=== PATIENT | male | born 1970 ===

== ENCOUNTER 2016-11-28 15:34 | Inpatient (IN) | payer MEDICAID, OTHER ==
[2016-11-28 16:48] VITALS: O2SAT 97
[2016-11-28 17:00] LABS: RBC URINE 1 /hpf (0-3); URINE BILIRUBIN NEGATIVE (NEGATIVE); URINE BLOOD NEGATIVE (NEGATIVE); URINE COLOR YELLOW (YELLOW); URINE GLUCOSE (UA) NEG (Normal); URINE KETONE NEGATIVE (NEGATIVE); URINE LEUKOCYTE ESTERASE NEG Leu/uL (Negative); URINE PROTEIN NEGATIVE (NEGATIVE); URINE UROBILINOGEN 0.2-1.0 mg/dL (0.2-1.0); WBC URINE < 1 /hpf (0-5)
[2016-11-28 17:00] LABS: BASO # 0.1 K/uL (0.0-0.2); BASO % 0.9 % (0.0-2.0); EOS # 0.3 K/uL (0.0-0.7); EOS % 3.6 % (0.0-4.0); HEMATOCRIT 46.6 % (35.0-51.0); LYMPH # 2.2 K/uL (1.0-4.3); LYMPH % 26.2 % (20.0-40.0); MEAN CELL VOLUME 94.4 fl (80.0-94.0); MEAN CORPUSCULAR HGB CONC 33.9 g/dL (33.0-37.0); MEAN PLATELET VOLUME 7.4 fl (7.2-11.7); MONO # 0.5 K/uL (0.0-0.8); MONO % 6.2 % (0.0-10.0); NEUT # 5.3 K/uL (1.8-7.0); NEUT % 63.1 % (50.0-75.0); RED CELL DISTRIBUTION WIDTH 12.6 % (11.5-14.5); WHITE BLOOD COUNT 8.3 K/uL (4.8-10.8)
[2016-11-28 17:31] LABS: ALB/GLOB RATIO 1.5 (1.0-2.1); ALCOHOL SERUM < 10 mg/dl (0-10); ALKALINE PHOSPHATASE 66 U/L (38-126); ALT/SGPT 35 U/L (21-72); AST/SGOT 24 U/L (17-59); BILIRUBIN,TOTAL 0.5 mg/dl (0.2-1.3); BLOOD UREA NITROGEN 21 mg/dl (9-20); CALCIUM 9.7 mg/dL (8.4-10.2); CARBON DIOXIDE 25 mmol/L (22-30); CHLORIDE 104 mmol/L (98-107); GFR AFRICAN-AMERICAN > 60; GLUCOSE,RANDOM 117 mg/dL (75-110); POTASSIUM 4.3 MMOL/L (3.6-5.0); SODIUM 141 mmol/l (132-148)
--- NOTE | 2016-11-28 18:15 | ED PDOC ---
HPI: Psych/Substance Abuse Time Seen by Provider: 11/28/16 15:40 Chief Complaint (Nursing): Psychiatric Evaluation Chief Complaint (Provider): Psychiatric Evaluation History Per: Patient History/Exam Limitations: no limitations Current Symptoms Are (Timing): Still Present Additional Complaint(s): Carrillo Arroyo is a 46 y/o male, with a pertinent past medical history of schizoaffective with depressive disorder, presenting to the ER on 11/28/2016 for a psychiatric evaluation after being sent here from the mental health clinic for having thoughts of suicidal ideation and depression. Patient is currently on Klonopin and Prozac for his symptoms, but states he still harbors sad feelings despite treatment. Patient denies any homicidal ideation or medical complaints at this time. Past Medical History Reviewed: Historical Data, Nursing Documentation, Vital Signs Vital Signs: Last Vital Signs Temp 98.6 F 11/28/16 16:47 Pulse 84 11/28/16 16:47 Resp 18 11/28/16 16:47 BP 121/75 11/28/16 16:47 Pulse Ox 97 11/28/16 16:47 - Medical History PMH: Anxiety, Back Problems, Depression - Surgical History Surgical History: Back Surgery Other surgeries: left shoulder; laproscopy - Family History Family History: States: Unknown Family Hx - Social History Current smoker - smoking cessation education provided: No Alcohol: None Drugs: Denies - Immunization History Hx Tetanus Toxoid Vaccination: No Hx Influenza Vaccination: No Hx Pneumococcal Vaccination: No - Home Medications Home Medications: Ambulatory Orders Medication Instructions Recorded Budesonide [Rhinocort Allergy] 2 spray ANN-MARIE DAILY PRN 11/28/16 Clonazepam Liquid 2.5 mg PO TID PRN 11/28/16 Hydrocodone/Acetaminophen 1 tab PO Q4H PRN 11/28/16 [Hydrocodon-Acetaminophn 10-325] Ibuprofen/Diphenhydramine HCl 2 cap PO HS PRN 11/28/16 [Advil Pm Liqui-Gels] - Allergies Allergies/Adverse Reactions: Allergies Allergy/AdvReac Type Severity Reaction Status Date / Time No Known Allergies Allergy Verified 11/28/16 16:10 Review of Systems ROS Statement: Except As Marked, All Systems Reviewed And Found Negative Constitutional: Negative for: Fever Neurological: Negative for: Weakness, Numbness, Altered Mental Status Psych: Positive for: Depression, Suicidal ideation Physical Exam - Reviewed Nursing Documentation Reviewed: Yes Vital Signs Reviewed: Yes - Physical Exam Appears: Positive for: Non-toxic, No Acute Distress (patient appears to be tearful) Head Exam: Positive for: ATRAUMATIC, NORMOCEPHALIC Skin: Positive for: Normal Color. Negative for: Rash Eye Exam: Positive for: Normal appearance ENT: Positive for: Normal ENT Inspection Neck: Positive for: Normal, Painless ROM, Supple Cardiovascular/Chest: Positive for: Regular Rate, Rhythm. Negative for: Murmur Respiratory: Positive for: Normal Breath Sounds. Negative for: Respiratory Distress Gastrointestinal/Abdominal: Positive for: Normal Exam, Soft. Negative for: Tenderness Extremity: Positive for: Normal ROM. Negative for: Deformity, Swelling Neurologic/Psych: Positive for: Alert, Oriented. Negative for: Motor/Sensory Deficits - Laboratory Results Result Diagrams: 11/28/16 17:00 11/28/16 16:32 - ECG ECG Rhythm: Positive for: Sinus Rhythm (@ 70 bpm) O2 Sat by Pulse Oximetry: 97 Medical Decision Making Medical Decision Makin:07 Initial Impression- 46 y/o male with depression and suicidal ideation Initial Plan- * EKG * Crisis Eval * 1:1 OBS 18:18 Patient was evaluated by crisis. Utox is positive for opiates. Patient is medically stable for admission under Dr. Roque. Documented by Liz Monet, acting as a scribe for Megan Degroot MD. All medical record entries made by the Scribe were at my direction and personally dictated by me. I have reviewed the chart and agree that the record accurately reflects my personal performance of the history, physical exam, medical decision making, and the department course for this patient. I have also personally directed, reviewed, and agree with the discharge instructions and disposition. Disposition - Clinical Impression Clinical Impression: Depression - Patient ED Disposition Is Patient to be Admitted: Yes - Disposition Disposition Time: 17:00 Condition: STABLE
[2016-11-28] MEDS ORDERED: Alum-Mag Hydrox-Simethicone Susp (30 mL) PO PRN (21:48)
[2016-11-28] MEDS ORDERED: DiphenhydrAMINE 50 mg/ml Inj IM PRN (21:48)
[2016-11-28] MEDS ORDERED: Magnesium Hydroxide Susp 30 ml UD PO PRN (21:48)
[2016-11-29 08:16] LABS: T4 7.57 ug/dl (5.5-11.0)
[2016-11-29 08:30] LABS: THYROID STIMULATING HORMONE 3.42 mIU/ML (0.46-4.68)
--- NOTE | 2016-11-29 10:16 | CARD ---
APPROVED REPORT EKG Measurement Heart [id number] <Conclusion> Normal sinus rhythm Possible Inferior infarct, age undetermined Abnormal ECG
--- NOTE | 2016-11-29 11:18 | RAD ---
HISTORY: psych COMPARISON: No prior. FINDINGS: LUNGS: No active pulmonary disease. PLEURA: No significant pleural effusion identified, no pneumothorax apparent. CARDIOVASCULAR: Normal. OSSEOUS STRUCTURES: No significant abnormalities. VISUALIZED UPPER ABDOMEN: Normal. OTHER FINDINGS: None. IMPRESSION: No active disease.
--- NOTE | 2016-11-29 12:33 | PCM.PSYCH ---
Initial Psychiatric Evaluation - Initial Psychiatric Evaluation Type of Admission: Voluntary Legal Status: Capacity Chief Complaint (in patient's own words): they didn't want me at that program Patient's Reaction to Hospitalization: cooperative/hopeful History of Present Illness and Precipitating Events: 46 yo male, history of witnessing destruction of [facility]. he started having panic attacks shortly thereafter- started when pt was going [place] the [place] and feeling trapped and short of breath/unable to escape. has progressed to having panic attacks and developing fears of public transportation, movies, grocery stores and tunnels. he also has fear of flying and ran out of 6 different flights when trying to come back from [facility]. he was started on prozac and klonopin which seemed to help. however he cannot get the medications here and started to decompensate. he states he was turned away from the [facility] because of "being on medications" he states he keeps a knife with him and has had thoughts of ending his life because "i can't live feeling those attacks anymore" he denies making any attempts and states he wants to get better and live for his daughter who is in [facility]. pt states he had no psychiatric symptoms prior to the 01/13 incident. he reports being exposed to trauma during his time in [facility]- seeing murdered people, but that this did not have an effect on him. he denies nightmares, dissociation , etc. Current Medications: Active Medications Generic Name Dose Route Start Last Admin Trade Name Freq PRN Reason Stop Dose Admin Acetaminophen 650 mg 11/28/16 21:48 Tylenol 325mg Tab PO Q4 PRN pain level 1 to 7 Al Hydrox/Mg Hydrox/Simethicone 30 ml 11/28/16 21:48 Maalox Plus 30 Ml PO Q4 PRN Dyspepsia Clonazepam 0.5 mg 11/29/16 17:00 Klonopin PO BIDHS LISA Diphenhydramine HCl 50 mg 11/28/16 21:48 Benadryl IM Q6 PRN Extrapyramidal S/S Unable PO Diphenhydramine HCl 50 mg 11/28/16 21:48 Benadryl PO Q6 PRN Extrapyramidal Symptoms Fluoxetine HCl 20 mg 11/29/16 09:00 11/29/16 09:19 Prozac PO 20 mg DAILY LISA Administration Haloperidol 5 mg 11/28/16 21:48 Haldol PO Q4 PRN Agitation Haloperidol Lactate 5 mg 11/28/16 21:48 Haldol IM Q4 PRN Agitation, Unable to Take PO Lorazepam 2 mg 11/28/16 21:48 Ativan IM Q4 PRN Anxiety/Agitation,Unable PO Lorazepam 2 mg 11/28/16 21:48 11/28/16 23:26 Ativan PO 2 mg Q4 PRN Administration Anxiety/Agitation Magnesium Hydroxide 30 ml 11/28/16 21:48 Milk Of Magnesia PO HS PRN Constipation Mirtazapine 15 mg 11/29/16 22:00 Remeron PO HS LISA Past Psychiatric History - Past Psychiatric History Previous Treatment History: Inpatient Prior Professional Help: hospitalized in [facility] and at [facility] Prior Psychiatric Treatment: states he got talk therapy in [facility]. History of Abuse: denies history of abuse History of ETOH/Drug Use: denies use of alcohol, tobacco or other illicit substances History of Family Illness: paternal aunts with agorophobia/panic disorder Pertinent Medical Hx (Current Medical&Sleep Prob, Allergies): Allergies Allergy/AdvReac Type Severity Reaction Status Date / Time No Known Allergies Allergy Verified 11/28/16 16:10 Budesonide [Rhinocort Allergy] 2 spray ANN-MARIE DAILY PRN 11/28/16 Clonazepam Liquid 2.5 mg PO TID PRN 11/28/16 Hydrocodone/Acetaminophen [Hydrocodon-Acetaminophn 10-325] 1 tab PO Q4H PRN Ibuprofen/Diphenhydramine HCl [Advil Pm Liqui-Gels] 2 cap PO HS PRN 11/28/16 recent left shoulder surgery Review of Systems - Psychiatric Psychiatric: As Per HPI, Abnormal Sleep Pattern, Anxiety, Difficulty Concentrating, Panic Attacks, Suicidal Ideation (denies intent to harm self) Mental Status Examination - Personal Presentation Personal Presentation: Looks stated age - Affect Affect: Broad - Motor Activity Motor Activity: Calm - Reliability in Providing Information Reliability in Providing Information: Good - Speech Speech: Organized - Mood Mood: Anxious - Formal Thought Process Formal Thought Process: No Impairment - Obsessions/Compulsions Obsessions: No Compulsions: No - Cognitive Functions Orientation: Person, Place, Situation, Time Sensorium: Alert Attention/Concentration: Attentive Abstract Thinking: Ayr Estimate of Intelligence: Average Judgement: Intact, as evidence by: Insight regarding need for hospitalization Memory: Recent intact, as evidence by: Ability to recall events of the day, Remote intact, as evidenced by: Abilit to recall sig. life events - Risk Risk: Suicidal (denies intent) - Strength & Assets Inventory Strength & Assets Inventory: Intelligence, Employment history - Limitations Limitations: Living alone DSM 5 DX - DSM 5 DSM 5 Diagnosis: panic disorder with agoraphobia - Recommended/Plan of Treatment Treatment Recommendations and Plan of Treatment: admit to [facility] for safety and observation gather collateral information provide supportive therapy adjust medications- start prozac, klonopin and remeron. discussed r/b/se with pt hospitalist consult pt consult for his recent shoulder surgery disposition planning- refer to a php/iop program Projected ELOS: 3-5 days Prognosis: fair - Smoking Cessation Smoking Cessation Initiated: No Reason for not providing: does not smoke
--- NOTE | 2016-11-29 14:51 | CP.PCM.CON ---
History of Present Illness - History of Present Illness History of Present Illness: REASON FOR CONSULT: per hospital protocol CC: This is a 46-year-old male with no past medical history admitted to psych floor for depression and suicidal ideation. No other complaints at this time, vitals are stable and he is in no acute distress. Review of systems per HPI all other systems reviewed and negative by me Past medical history denies Past surgical history denies Family history denies Social history denies tobacco, alcohol, IV drug abuse medications as below No known drug allergies Temp Pulse Resp BP Pulse Ox 96.4 F L 76 18 112/67 97 11/29/16 09:00 11/29/16 09:00 11/29/16 09:00 11/29/16 09:00 11/28/16 18:22 Vital signs as documented. Gen: WDWN, cooperative, alert HEENT: NCAT, PERRL, EOMI, no erythema, exudates, gross hearing intact, no lesions Neck: Soft, supple, no lymphadenopathy, no JVD Heart: +S1S2, RRR, No MRG Lung: CTAB, No WRR Abd: soft, NT, ND, BSx4, no HSM, no masses Ext: warm, well perfused, pedal pulses intact Neuro: AAOx3, Strength equal bilaterally UE/LE Skin: Warm, Dry, no rash Psych: Normal mood, affect with appropriate range Allergies No Known Allergies Allergy (Verified 11/28/16 16:10) Height & Weight Height 5 ft 7 in Weight 145 lb Start Date/Time Active Medications 11/28/16 21:48 Acetaminophen [Tylenol 325mg tab] 650 mg PO Q4 PRN Aluminum Hydroxide/Magnesium [Maalox Plus 30 ml] 30 ml PO Q4 PRN DiphenhydrAMINE [Benadryl] 50 mg IM Q6 PRN DiphenhydrAMINE [Benadryl] 50 mg PO Q6 PRN Haloperidol Lactate [Haldol] 5 mg IM Q4 PRN Haloperidol [Haldol] 5 mg PO Q4 PRN LORazepam [Ativan] 2 mg IM Q4 PRN LORazepam [Ativan] 2 mg PO Q4 PRN Magnesium Hydroxide [Milk Of Magnesia] 30 ml PO HS PRN 11/29/16 09:00 FLUoxetine [Prozac] 20 mg PO DAILY 11/29/16 17:00 clonazePAM [Klonopin] 0.5 mg PO BIDHS 11/29/16 22:00 Mirtazapine [Remeron] 15 mg PO HS 11/28/16 17:00 11/28/16 16:32 assessment and plan This is a 46-year-old male with no past medical history admitted to psych floor for depression and suicidal ideation. No other complaints at this time, vitals are stable and he is in no acute distress. 6 Depression and suicidal ideation Management per psychiatry Past Patient History - Past Social History Alcohol: None Drugs: Denies - CARDIAC Hx Cardiac Disorders: No Hx Hypertension: No - PULMONARY Hx Respiratory Disorders: No Hx Tuberculosis: No - NEUROLOGICAL Hx Neurological Disorder: No HX Cerebrovascular Accident: No Hx Seizures: No - HEENT Hx HEENT Problems: No - RENAL Hx Chronic Kidney Disease: No - ENDOCRINE/METABOLIC Hx Endocrine Disorders: No - HEMATOLOGICAL/ONCOLOGICAL Hx Blood Disorders: No Hx Cancer: No Hx Human Immunodeficiency Virus (HIV): No - INTEGUMENTARY Hx Dermatological Problems: No - MUSCULOSKELETAL/RHEUMATOLOGICAL Hx Musculoskeletal Disorders: Yes Other/Comment: left shoulder surg 2wks ago - GASTROINTESTINAL Hx Gastrointestinal Disorders: No - GENITOURINARY/GYNECOLOGICAL Hx Genitourinary Disorders: No Hx Sexually Transmitted Disorders: No - PSYCHIATRIC Hx Depression: Yes Hx Substance Use: No - SURGICAL HISTORY Hx Orthopedic Surgery: Yes (LEFT SHOULDER) - ANESTHESIA Hx Anesthesia: Yes Hx Anesthesia Reactions: No Meds Allergies/Adverse Reactions: Allergies Allergy/AdvReac Type Severity Reaction Status Date / Time No Known Allergies Allergy Verified 11/28/16 16:10 - Medications Medications: Current Medications Acetaminophen (Tylenol 325mg Tab) 650 mg PO Q4 PRN PRN Reason: pain level 1 to 7 Al Hydrox/Mg Hydrox/Simethicone (Maalox Plus 30 Ml) 30 ml PO Q4 PRN PRN Reason: Dyspepsia Clonazepam ([facility]) [facility] Diphenhydramine HCl (Benadryl) 50 mg IM Q6 PRN PRN Reason: Extrapyramidal S/S Unable PO Diphenhydramine HCl (Benadryl) 50 mg PO Q6 PRN PRN Reason: Extrapyramidal Symptoms Fluoxetine HCl (Prozac) 20 mg PO DAILY [facility] Last Admin: 11/29/16 09:19 Dose: 20 mg Haloperidol (Haldol) 5 mg PO Q4 PRN PRN Reason: Agitation Haloperidol Lactate (Haldol) 5 mg IM Q4 PRN PRN Reason: Agitation, Unable to Take PO Lorazepam (Ativan) 2 mg IM Q4 PRN PRN Reason: Anxiety/Agitation,Unable PO Lorazepam (Ativan) 2 mg PO Q4 PRN PRN Reason: Anxiety/Agitation Last Admin: 11/28/16 23:26 Dose: 2 mg Magnesium Hydroxide (Milk Of Magnesia) 30 ml PO HS PRN PRN Reason: Constipation Mirtazapine (Remeron) 15 mg PO HS LISA Results - Vital Signs Recent Vital Signs: Last Vital Signs Temp 96.4 F L 11/29/16 09:00 Pulse 76 11/29/16 09:00 Resp 18 11/29/16 09:00 BP 112/67 11/29/16 09:00 Pulse Ox 97 11/28/16 18:22 - Labs Result Diagrams: 11/28/16 17:00 11/28/16 16:32 Labs: Laboratory Results - last 24 hr 11/29/16 11/29/16 07:30 07:30 Hemoglobin A1c 5.2 Triglycerides 98 Cholesterol 246 H LDL Cholesterol Direct 191 H HDL Cholesterol 36 Thyroxine (T4) 7.57 TSH 3rd Generation 3.42
--- NOTE | 2016-11-30 08:21 | PCM.PYCHPN ---
Psychiatric Progress Note - Psychiatric Progress Note Patient seen today, length of contact: pt seen and evaluated Patient Chief Complaint: pt is less depressed and less anxious but still c/o pain in shoulder .pt denies suicidal ideation .no side effects to meds Problems Identified/Issues Discussed: admitted for depression and suicidal ideation DSM 5 Symptoms Update: major depression Medication Change: No Medical Record Reviewed: Yes Mental Status Examination - Cognitive Function Orientation: Person, Place, Situation, Time Attention: Poor Concentration: Poor - Mood Mood: Anxious - Affect Affect: Broad - Formal Thought Process Formal Thought Process: No Impairment - Homicidal Ideation Homicidal Ideation: No Goal/Treatment Plan - Goal/Treatment Plan Progress Toward Problem(s) and Goals/Treatment Plan: nic continue to stabilize with meds and engage in therapy and refer him to PMD for follow up on pain
--- NOTE | 2016-12-01 15:39 | PCM.PYCHPN ---
Psychiatric Progress Note - Psychiatric Progress Note Patient seen today, length of contact: pt seen and evaluated Patient Chief Complaint: pt is less depressed and less anxious but still c/o pain in shoulder .pt denies suicidal ideation .no side effects to meds Problems Identified/Issues Discussed: admitted for depression and suicidal ideation Medication Change: No Medical Record Reviewed: Yes Mental Status Examination - Cognitive Function Orientation: Person, Place, Situation, Time Attention: Poor Concentration: Poor - Mood Mood: Anxious - Affect Affect: Broad - Formal Thought Process Formal Thought Process: No Impairment - Homicidal Ideation Homicidal Ideation: No Goal/Treatment Plan - Goal/Treatment Plan Progress Toward Problem(s) and Goals/Treatment Plan: nic continue to stabilize with meds and engage in therapy and refer him to PMD for follow up on pain
[2016-12-02 09:08] VITALS: RESP 20
--- NOTE | 2016-12-02 13:47 | PCM.PYCHPN ---
Psychiatric Progress Note - Psychiatric Progress Note Patient seen today, length of contact: in treatment team Patient Chief Complaint: i feel much better Problems Identified/Issues Discussed: pt states he's doing better. reports good sleep. feels remeron is helpful. denies suicidal thoughts. attends groups Medication Change: No Medical Record Reviewed: Yes Mental Status Examination - Cognitive Function Orientation: Person, Place, Situation, Time Memory: Intact Attention: WNL Concentration: WNL Association: WN Fund of Knowledge: [facility] Decription of patient's judgement and insights: fair - Mood Mood: Neutral - Affect Affect: Broad - Speech Speech: Appropriate - Formal Thought Process Formal Thought Process: No Impairment - Suicidal Ideation Suicidal Ideation: No Plan: denies si - Homicidal Ideation Homicidal Ideation: No Goal/Treatment Plan - Goal/Treatment Plan Need for Continued Stay: Remain at risks for inpatient hospitalization, Severe functional impairment Progress Toward Problem(s) and Goals/Treatment Plan: panic disorder with agoraphobia continue current treatment discharge tomorrow Estimated Date of D/C: 12/03/16
[2016-12-03 09:10] VITALS: BP 120/75; PULSE 106; TEMP 97.9
--- NOTE | 2016-12-03 12:42 | PCM.PYCHDC ---
Mental Status Examination - Mental Status Examination Orientation: Person, Place, Situation, Time Memory: Intact Mood: Anxious (regarding discharge) Affect: Broad Speech: Appropriate Attention: WNL Concentration: WNL Association: WNL Fund of Knowledge: WNL Formal Thought Process: No Impairment Description of patient's judgement and insight: fair Psychotic Thoughts and Behaviors: denies a/v hallucations Suicidal Ideation: No Current Homicidal Ideation?: No Plan: denies any suicidal or homicidal thoughts Discharge Summary - Discharge Note Reason for Hospitalization: pt reported he was turned down at the outpt clinic here and was sent to the ER because of his anxiety and feeling overwhelmed Psychiatric History (includes Medical, Family, Personal Hx): history of previous hospitalizations Laboratory Data: uds was negative for benzos, positive for opiates as pt was taken percocet after his surgery Consultations:: List each consultation separately and include: 1. Reason for request. 2. Findings. 3. Follow-up Consultations: seen by hospitalist Summary of Hospital Course include:: 1. Description of specific treatment plan utilized for patients during their course of treatmen. 2. Summarize the time- course for resolution of acute symptoms and/or regressed behaviors. 3. Describe issues identified and worked on during hospitalization. 4. Describe medication utilized. 5. Describe medical problems identified and treated. 6. Reassessment of suicide risk Summary of Hospital Course: 46 yo male, history of witnessing destruction of [facility]. he started having panic attacks shortly thereafter- started when pt was going [place] the [place] and feeling trapped and short of breath/unable to escape. has progressed to having panic attacks and developing fears of public transportation, movies, grocery stores and tunnels. he also has fear of flying and ran out of 6 different flights when trying to come back from [facility]. he was started on prozac and klonopin which seemed to help. however he cannot get the medications here and started to decompensate. he states he was turned away from the [facility] because of "being on medications" he states he keeps a knife with him and has had thoughts of ending his life because "i can't live feeling those attacks anymore" he denies making any attempts and states he wants to get better and live for his daughter who is in [facility]. pt states he had no psychiatric symptoms prior to the 01/13 incident. he reports being exposed to trauma during his time in [facility]- seeing murdered people, but that this did not have an effect on him. he denies nightmares, dissociation , etc. hospital course pt was admitted to [facility] and oriented to the unit. he was placed on routine safety protocols. he was started on his home medication- prozac. his klonopin dose was lowered to 0.5mg bid and he was started on remeron to target his anxiety and insomnia. he attended groups. he was referred to another outpt program as he was not permitted to attend [facility] because of their concerns that he was abusing his klonopin (despite his negative uds). he was seen by physical therapy and can resume this as an outpt. at the time of discharge the pt was goal directed, future oriented and denying any suicidal or homicidal thoughts/ plans or intent. - Final Diagnosis (DSM 5) Condition upon Discharge: STABLE DSM 5: panic disorder, with agoraphobia Disposition: HOME/ ROUTINE Follow-up Treatment Plan: take medications as prescribed follow up with outpt treatment as directed do not use alcohol, tobacco or other illicit substances see your primary care and PT for your follow up medical needs call 911 if any suicidal or homicidal thoughts, plans or intent Prescriptions/Medication Reconciliation: clonazePAM [Klonopin] 0.5 mg PO BID #30 tab FLUoxetine [Prozac] 20 mg PO DAILY #30 cap Mirtazapine [Remeron] 15 mg PO HS #30 tab - Smoking Cessation Smoking Cessation Medication prescribed: No Reason for not providing: does not smoke - Antipsychotic Medications Pt discharged on 2 or more routine antipsychotic medications: No
--- NOTE | 2016-12-04 18:22 | CARD ---
APPROVED REPORT EKG Measurement Heart [id number] <Conclusion> Normal sinus rhythm Inferior infarct, age undetermined Abnormal ECG
== END 2016-12-03 15:31 | disposition home or self-care (01) | DRG 426 ==
LOC: H.ER 15:34 → H.ERHOLD 17:45 → H.PSYCH 21:39
PROVIDERS: ADMIT Psychiatry & Neurology Psychiatry; ATTEND Psychiatry & Neurology Psychiatry
PROC: GZHZZZZ Group Psychotherapy (ICD-10-PCS; principal; 2016-12-02)
DX: F32.9 Major depressive disorder, single episode, unspecified (principal); R45.851 Suicidal ideations; F40.01 Agoraphobia with panic disorder; G47.00 Insomnia, unspecified